=== PATIENT | female | born 1930 | race African-American/Black ===

== ENCOUNTER 2018-03-23 15:05 | Inpatient (IN) | payer MEDICARE, OTHER ==
[~2018-03-23] VITALS: Ht 162.6 cm; Wt 51.7 kg
[2018-03-23] MEDS ORDERED: MORPHINE SULFATE 4 MG/ML CPJ (NOT FOR IM USE) IV STA (16:30)
[2018-03-23] MEDS ORDERED: SODIUM CHLORIDE 0.9% 1,000 ML IV ONE (16:30)
[2018-03-23] MEDS ORDERED: ONDANSETRON HCL 4MG/2ML INJ IV STA (16:30)
[2018-03-23 17:20] LABS: BASOPHILS % 0.4 % (0.0-2.0); EOSINOPHILS % 0.6 % (0.0-5.0); HEMOGLOBIN. 12.8 g/dL (12.0-16.0); LYMPHOCYTES % 10.3 % (20.0-50.0); MEAN CORPUSCULAR HEMOGLOBIN 31.6 pg (28.0-32.0); MEAN CORPUSCULAR VOLUME 93.7 fL (81.0-99.0); MEAN PLATELET VOLUME 8.7 fl (7.4-10.4); MONOCYTES % 3.5 % (2.0-8.0); NEUTROPHILS % 85.2 % (40.0-76.0); PLATELET 200 x1000/uL (130-400); RED BLOOD CELL COUNT 4.05 mill/uL (4.2-5.4); RED CELL DISTRIBUTION WIDTH 14.2 % (11.6-14.6)
[2018-03-23 17:26] LABS: PROTHROMBIN TIME 10.5 sec (9.1-11.1)
[2018-03-23 17:28] LABS: CHLORIDE 105 mEq/L (98-107)
[2018-03-23] MEDS ORDERED: METO25TA6 PO (21:49)
[2018-03-23] MEDS ORDERED: LEVE500T78 PO (21:49)
[2018-03-23] MEDS ORDERED: AMLO10TA80 MT (21:49)
[2018-03-23] MEDS ORDERED: ATOR-2 MT (21:49)
[2018-03-23] MEDS ORDERED: IRBE150T27 MT (21:49)
[2018-03-23] MEDS ORDERED: HYDR12.529 MT (21:49)
[2018-03-23 22:00] VITALS: BP 135/56
[2018-03-23] MEDS ORDERED: MAGNESIUM HYDROXIDE 400MG/5ML 30ML UDC PO PRN (22:30)
[2018-03-23] MEDS ORDERED: ACETAMINOPHEN 650MG/20.3ML UDC PO PRN (22:30)
[2018-03-23 22:34] VITALS: BP 135/56
[2018-03-23] MEDS ORDERED: LEVETIRACETAM 500 MG in SODIUM CHLORIDE 0.9% 100 ML IV NR (23:30)
[2018-03-23] MEDS: DEXT 5%/0.45% NACL 1000ML 1,000 ML IV SCH (23:45)
[2018-03-24] VITALS: BP 135/55
[2018-03-24 04:00] VITALS: BP 166/80
[2018-03-24 06:51] LABS: HEMATOCRIT 37.6 % (36.0-48.0); HEMOGLOBIN 12.9 g/dL (12.0-16.0)
[2018-03-24 08:00] VITALS: BP 143/64
[2018-03-24] MEDS: LOSARTAN POTASSIUM 50 MG TABLET PO SCH (08:48)
[2018-03-24] MEDS: AMLODIPINE 10MG TABLET PO SCH (08:49)
[2018-03-24] MEDS: LEVETIRACETAM 500 MG in SODIUM CHLORIDE 0.9% 100 ML IV SCH ×2 (08:49→20:26)
[2018-03-24] MEDS ORDERED: IRBESARTAN MT SCH (09:00)
[2018-03-24 12:00] VITALS: BP 150/64
[2018-03-24] MEDS: DEXT 5%/0.45% NACL 1000ML 1,000 ML IV SCH (12:19)
[2018-03-24] MEDS ORDERED: MORPHINE SULFATE 4 MG/ML CPJ (NOT FOR IM USE) IV ONE (12:39)
[2018-03-24] MEDS ORDERED: ROPIVACAINE HCL 10MG/ML 20 ML VIAL EPI ONE (12:39)
[2018-03-24] MEDS ORDERED: BACITRACIN 50,000 UNITS/VIAL ONE (12:40)
[2018-03-24] MEDS ORDERED: ROCURONIUM BROMIDE 10MG/ML VIAL 5ML IV ONE (14:57)
[2018-03-24] MEDS ORDERED: FENTANYL CITRATE/PF 50MCG/ML 2ML VIAL ONE (14:57)
[2018-03-24] MEDS ORDERED: NEOSTIGMINE METHYLSULFATE 1MG/ML 10 ML VIAL ONE (14:57)
[2018-03-24] MEDS ORDERED: GLYCOPYRROLATE 0.2 MG/ML 2ML VIAL ONE (14:58)
[2018-03-24] MEDS ORDERED: PROPOFOL 200MG/20ML VIAL IV ONE (14:58)
[2018-03-24] MEDS ORDERED: MIDAZOLAM HCL 2 MG/2 ML VIAL ONE (14:58)
[2018-03-24] MEDS ORDERED: ONDANSETRON HCL 4MG/2ML INJ ONE (15:00)
[2018-03-24] MEDS ORDERED: DEXAMETHASONE 4MG/ML 1ML VIAL ONE (15:00)
[2018-03-24] MEDS ORDERED: MEPERIDINE HCL/PF 25MG/ML CPJ IV PRN (15:45)
[2018-03-24] MEDS ORDERED: LABETALOL 5MG/ML SYR 20 MG/4 ML SYRINGE IV PRN (15:45)
[2018-03-24] MEDS ORDERED: HYDROMORPHONE HCL/PF 2MG/ML CPJ IV PRN (15:45)
[2018-03-24] MEDS ORDERED: ONDANSETRON HCL 4MG/2ML INJ IV PRN (15:45)
[2018-03-24] MEDS ORDERED: SODIUM CHLORIDE 0.9% 10ML VIAL ONE (15:48)
[2018-03-24] MEDS ORDERED: LIDOCAINE HCL/PF 1% 10 MG/ML 5ML VIAL ONE (15:48)
[2018-03-24] MEDS ORDERED: CEFAZOLIN SODIUM 1000MG/VIAL ONE (15:48)
[2018-03-24] MEDS ORDERED: EPHEDRINE SULFATE 50MG/ML VIAL ONE (15:48)
[2018-03-24] MEDS ORDERED: CEFAZOLIN 1000MG PREMIX 50 ML IV NR (16:00)
[2018-03-24 20:00] VITALS: BP 127/55
[2018-03-25] VITALS: BP 128/56
[2018-03-25] MEDS: DEXT 5%/0.45% NACL 1000ML 1,000 ML IV SCH ×2 (03:36→15:00)
[2018-03-25 04:00] VITALS: BP 130/58
[2018-03-25 08:00] VITALS: BP 142/53
[2018-03-25] MEDS: AMLODIPINE 10MG TABLET PO SCH (08:21)
[2018-03-25] MEDS: LOSARTAN POTASSIUM 50 MG TABLET PO SCH (08:22)
[2018-03-25] MEDS: LEVETIRACETAM 500 MG in SODIUM CHLORIDE 0.9% 100 ML IV SCH (08:23)
[2018-03-25] MEDS: MORPHINE SULFATE 4 MG/ML CPJ (NOT FOR IM USE) IV PRN (09:37)
[2018-03-25] MEDS ORDERED: ACETAMINOPHEN 325MG TABLET PO PRN (09:45)
[2018-03-25] MEDS ORDERED: HYDROCODONE/ACETAMINOPHEN 5/325MG TABLET PO PRN (09:45)
[2018-03-25 09:53] LABS: HEMATOCRIT. 33.6 % (36.0-48.0); HEMOGLOBIN. 11.3 g/dL (12.0-16.0); MEAN CORPUSCULAR HEMOGLOBIN 31.7 pg (28.0-32.0); MEAN CORPUSCULAR VOLUME 94.3 fL (81.0-99.0); MEAN PLATELET VOLUME 9.8 fl (7.4-10.4); PLATELET 172 x1000/uL (130-400); RED BLOOD CELL COUNT 3.56 mill/uL (4.2-5.4); RED CELL DISTRIBUTION WIDTH 14.2 % (11.6-14.6)
[2018-03-25] MEDS: DOCUSATE SODIUM 250MG CAPSULE PO SCH (09:55)
[2018-03-25] MEDS ORDERED: LEVETIRACETAM 500MG/5ML CUP PO SCH (10:00)
[2018-03-25 12:00] VITALS: BP 153/64
[2018-03-25] MEDS ORDERED: ASPIRIN 325MG EC TABLET PO SCH (17:00)
[2018-03-25] MEDS: ENOXAPARIN 30MG/0.3ML SYR SUBCUT SCH ×2 (17:15→17:19)
[2018-03-25 17:25] LABS: HEMATOCRIT. 30.4 % (36.0-48.0); HEMOGLOBIN. 10.3 g/dL (12.0-16.0); MEAN CORPUSCULAR VOLUME 94.1 fL (81.0-99.0); MEAN PLATELET VOLUME 9.5 fl (7.4-10.4); PLATELET 148 x1000/uL (130-400); RED BLOOD CELL COUNT 3.23 mill/uL (4.2-5.4); RED CELL DISTRIBUTION WIDTH 13.9 % (11.6-14.6)
[2018-03-25 20:00] VITALS: BP 147/47
[2018-03-25] MEDS: LEVETIRACETAM 500MG/5ML CUP PO SCH (20:15)
[2018-03-25] MEDS: ZOLPIDEM TARTRATE 5MG TABLET PO PRN (21:47)
[2018-03-25 21:49] LABS: PLATELET ESTIMATE NORMAL
[2018-03-25 21:54] LABS: PLATELET ESTIMATE NORMAL
[2018-03-26 00:07] VITALS: BP 127/49
[2018-03-26 04:00] VITALS: BP 153/62
[2018-03-26] MEDS: MORPHINE SULFATE 4 MG/ML CPJ (NOT FOR IM USE) IV PRN ×2 (04:58→12:49)
[2018-03-26] MEDS: DEXT 5%/0.45% NACL 1000ML 1,000 ML IV SCH (05:00)
[2018-03-26 08:00] VITALS: BP 195/79
[2018-03-26] MEDS: LEVETIRACETAM 500MG/5ML CUP PO SCH ×2 (09:13→20:55)
[2018-03-26] MEDS: DOCUSATE SODIUM 250MG CAPSULE PO SCH (09:13)
[2018-03-26] MEDS: AMLODIPINE 10MG TABLET PO SCH (09:14)
[2018-03-26] MEDS: LOSARTAN POTASSIUM 50 MG TABLET PO SCH (09:14)
[2018-03-26] MEDS: ENOXAPARIN 30MG/0.3ML SYR SUBCUT SCH (09:21)
[2018-03-26] MEDS ORDERED: LOSARTAN POTASSIUM 50 MG TABLET PO SCH (09:30)
[2018-03-26] MEDS ORDERED: CLONIDINE 0.1MG TABLET PO PRN (09:30)
[2018-03-26 12:00] VITALS: BP 167/56
[2018-03-26 16:00] VITALS: BP 152/62
[2018-03-26 20:00] VITALS: BP 142/54
[2018-03-26] MEDS: ZOLPIDEM TARTRATE 5MG TABLET PO PRN (20:55)
[2018-03-27] VITALS: BP 149/50
[2018-03-27 04:00] VITALS: BP 140/61
[2018-03-27] MEDS: MORPHINE SULFATE 4 MG/ML CPJ (NOT FOR IM USE) IV PRN (05:51)
[2018-03-27 08:00] VITALS: BP 149/64
[2018-03-27] MEDS ORDERED: LOSARTAN POTASSIUM 100 MG TABLET PO SCH (09:00)
[2018-03-27] MEDS: DOCUSATE SODIUM 250MG CAPSULE PO SCH (09:16)
[2018-03-27] MEDS: ENOXAPARIN 30MG/0.3ML SYR SUBCUT SCH (09:17)
[2018-03-27] MEDS: LEVETIRACETAM 500MG/5ML CUP PO SCH (09:17)
[2018-03-27] MEDS: AMLODIPINE 10MG TABLET PO SCH (09:17)
[2018-03-27 12:00] VITALS: BP 161/60
[2018-03-27 14:29] VITALS: BP 161/60
[2018-03-27 15:50] LABS: BASOPHILS % 0.3 % (0.0-2.0); EOSINOPHILS % 0.3 % (0.0-5.0); HEMATOCRIT. 28.7 % (36.0-48.0); HEMOGLOBIN. 9.9 g/dL (12.0-16.0); MEAN CORPUSCULAR HEMOGLOBIN 31.9 pg (28.0-32.0); MEAN CORPUSCULAR VOLUME 92.3 fL (81.0-99.0); MEAN PLATELET VOLUME 8.9 fl (7.4-10.4); MONOCYTES % 6.9 % (2.0-8.0); NEUTROPHILS % 84.5 % (40.0-76.0); PLATELET 165 x1000/uL (130-400); RED BLOOD CELL COUNT 3.11 mill/uL (4.2-5.4); RED CELL DISTRIBUTION WIDTH 14.1 % (11.6-14.6)
[2018-03-27 16:00] VITALS: BP 153/54
== END 2018-03-27 17:20 | DRG 470 ==
LOC: ER 15:05 → 6EST 16:53 → EDBEDREQTM 16:57 → EDBEDREQSVC 16:57 → EDBEDREQ 16:57 → ENRESERV 20:19
PROVIDERS: ADMIT Specialist; ATTEND Specialist
PROC: 0SRR0JZ Replacement of Right Hip Joint, Femoral Surface with Synthetic Substitute, Open Approach (ICD-10-PCS; principal; 2018-03-24 14:30)
DX: S72.011A Unspecified intracapsular fracture of right femur, initial encounter for closed fracture (principal); E11.9 Type 2 diabetes mellitus without complications; I10 Essential (primary) hypertension; G40.909 Epilepsy, unspecified, not intractable, without status epilepticus; F03.90 Unspecified dementia, unspecified severity, without behavioral disturbance, psychotic disturbance, mood disturbance, and anxiety; D64.9 Anemia, unspecified; W01.0XXA Fall on same level from slipping, tripping and stumbling without subsequent striking against object, initial encounter; Y93.89 Activity, other specified; Y92.89 Other specified places as the place of occurrence of the external cause; Y99.8 Other external cause status; Z86.73 Personal history of transient ischemic attack (TIA), and cerebral infarction without residual deficits; Z79.899 Other long term (current) drug therapy; Z88.8 Allergy status to other drugs, medicaments and biological substances
CPT/HCPCS: 36415; 71045; 72170; 73522; 80053; 85014; 85018; 85025; 85610; 85730; 86850; 86900; 88305; 88311; 93005; 93970; 96361; 96374; 96375; 97116; 97162; 99285; A4216; C1776; J0690; J1100; J1650; J1953; J2250; J2270; J2405; J2704; J2710; J2795; J3010; J3490; J7030; J7050; A4315

== ENCOUNTER 2018-03-27 17:30 | Inpatient (IN) | payer OTHER ==
[~2018-03-27] VITALS: Ht 162.6 cm; Wt 51.7 kg
[~2018-03-27 17:30] MED LIST: AMLO10TA80 MT; ATOR-2 MT; HYDR12.529 MT; IRBE150T27 MT; LEVE500T78 PO; METO25TA6 PO
[2018-03-27 17:40] VITALS: BP 143/55
[2018-03-27] MEDS ORDERED: ACETAMINOPHEN 650MG/20.3ML UDC PO PRN (19:00)
[2018-03-27] MEDS ORDERED: CLONIDINE 0.1MG TABLET PO PRN (19:00)
[2018-03-27] MEDS ORDERED: ZOLPIDEM TARTRATE 5MG TABLET PO PRN (19:00)
[2018-03-27] MEDS ORDERED: MORPHINE SULFATE 4 MG/ML CPJ (NOT FOR IM USE) IV PRN (19:15)
[2018-03-27 20:00] VITALS: BP_SYST 140; BP_SYST 143; BP_DIAS 55; BP_DIAS 65
[2018-03-27] MEDS ORDERED: NA PHOS,M-B/NA PHOS,DI-BA ENEMA 118ML PR PRN (21:00)
[2018-03-27] MEDS: LEVETIRACETAM 500MG TABLET PO SCH (22:26)
[2018-03-27] MEDS: MAGNESIUM HYDROXIDE 400MG/5ML 30ML UDC PO PRN (23:24)
[2018-03-28] MEDS ORDERED: TAMSULOSIN HCL 0.4MG SR CAPSULE PO NR (01:45)
[2018-03-28 06:47] LABS: BASOPHILS % 0.5 % (0.0-2.0); EOSINOPHILS % 0.3 % (0.0-5.0); HEMATOCRIT. 25.5 % (36.0-48.0); LYMPHOCYTES % 9.5 % (20.0-50.0); MEAN CORPUSCULAR HEMOGLOBIN 32.7 pg (28.0-32.0); MEAN CORPUSCULAR VOLUME 92.7 fL (81.0-99.0); MEAN PLATELET VOLUME 9.2 fl (7.4-10.4); MONOCYTES % 8.6 % (2.0-8.0); NEUTROPHILS % 81.1 % (40.0-76.0); PLATELET 154 x1000/uL (130-400); RED BLOOD CELL COUNT 2.75 mill/uL (4.2-5.4); RED CELL DISTRIBUTION WIDTH 13.6 % (11.6-14.6)
[2018-03-28 06:49] LABS: CHLORIDE 108 mEq/L (98-107)
[2018-03-28 07:23] LABS: VITAMIN B12 SERUM 552 pg/mL (211-911)
[2018-03-28 08:00] VITALS: BP 135/61
[2018-03-28] MEDS: DOCUSATE SODIUM 250MG CAPSULE PO SCH (08:14)
[2018-03-28] MEDS: LEVETIRACETAM 500MG TABLET PO SCH ×2 (08:15→20:33)
[2018-03-28] MEDS: ENOXAPARIN 30MG/0.3ML SYR SUBCUT SCH (08:17)
[2018-03-28] MEDS: LOSARTAN POTASSIUM 100 MG TABLET PO SCH (08:17)
[2018-03-28] MEDS: HYDROCODONE/ACETAMINOPHEN 5/325MG TABLET PO PRN ×2 (08:20→14:32)
[2018-03-28] MEDS ORDERED: AMLODIPINE 10MG TABLET PO SCH (09:00)
[2018-03-28] MEDS ORDERED: POTASSIUM CHLORIDE 20MEQ TABLET SR PO NR (10:30)
[2018-03-28] MEDS: FERROUS SULFATE 325MG TABLET PO SCH (18:05)
[2018-03-28] MEDS: ASCORBIC ACID 500 MG TABLET PO SCH (18:05)
[2018-03-28 20:00] VITALS: BP 123/44
[2018-03-28] MEDS: BISACODYL 5MG TABLET PO PRN (20:33)
[2018-03-28] MEDS: TAMSULOSIN HCL 0.4MG SR CAPSULE PO SCH (20:33)
[2018-03-29] MEDS: HYDROCODONE/ACETAMINOPHEN 5/325MG TABLET PO PRN ×2 (06:56→13:14)
[2018-03-29 07:14] LABS: CHLORIDE 107 mEq/L (98-107)
[2018-03-29 08:00] VITALS: BP 137/60
[2018-03-29] MEDS: DOCUSATE SODIUM 250MG CAPSULE PO SCH (08:41)
[2018-03-29] MEDS: FERROUS SULFATE 325MG TABLET PO SCH ×2 (08:41→17:17)
[2018-03-29] MEDS: AMLODIPINE 5MG TABLET PO SCH (08:42)
[2018-03-29] MEDS: LEVETIRACETAM 500MG TABLET PO SCH ×2 (08:42→21:21)
[2018-03-29] MEDS: ASCORBIC ACID 500 MG TABLET PO SCH ×2 (08:42→17:17)
[2018-03-29] MEDS: LOSARTAN POTASSIUM 100 MG TABLET PO SCH (08:42)
[2018-03-29] MEDS: ENOXAPARIN 30MG/0.3ML SYR SUBCUT SCH (08:48)
[2018-03-29] MEDS ORDERED: POTASSIUM CHLORIDE 20MEQ TABLET SR PO NR (11:00)
[2018-03-29 20:16] VITALS: BP 128/54
[2018-03-29] MEDS: TAMSULOSIN HCL 0.4MG SR CAPSULE PO SCH (21:21)
[2018-03-30] MEDS: ACETAMINOPHEN 325MG TABLET PO PRN (02:39)
[2018-03-30 07:55] VITALS: BP 112/45
[2018-03-30] MEDS: POTASSIUM CHLORIDE 20MEQ TABLET SR PO SCH (08:33)
[2018-03-30] MEDS: ACETAMINOPHEN 500MG TABLET PO SCH ×2 (08:33→13:38)
[2018-03-30] MEDS: LEVETIRACETAM 500MG TABLET PO SCH ×2 (08:34→21:25)
[2018-03-30] MEDS: ASCORBIC ACID 500 MG TABLET PO SCH ×2 (08:34→18:20)
[2018-03-30] MEDS: FERROUS SULFATE 325MG TABLET PO SCH ×2 (08:34→18:20)
[2018-03-30] MEDS: LOSARTAN POTASSIUM 100 MG TABLET PO SCH (08:34)
[2018-03-30] MEDS: AMLODIPINE 5MG TABLET PO SCH (08:34)
[2018-03-30] MEDS: ENOXAPARIN 30MG/0.3ML SYR SUBCUT SCH (08:34)
[2018-03-30] MEDS: DOCUSATE SODIUM 250MG CAPSULE PO SCH (08:45)
[2018-03-30] MEDS: HYDROCODONE/ACETAMINOPHEN 5/325MG TABLET PO PRN ×2 (09:46→21:24)
[2018-03-30 20:00] VITALS: BP 119/50
[2018-03-30] MEDS: TAMSULOSIN HCL 0.4MG SR CAPSULE PO SCH (21:25)
[2018-03-31] MEDS: ACETAMINOPHEN 500MG TABLET PO SCH ×2 (07:00→14:14)
[2018-03-31] MEDS ORDERED: MORPHINE SULFATE 4 MG/ML CPJ (NOT FOR IM USE) IV PRN (07:15)
[2018-03-31 08:17] LABS: BASOPHILS % 0.3 % (0.0-2.0); EOSINOPHILS % 0.8 % (0.0-5.0); HEMATOCRIT. 25.2 % (36.0-48.0); HEMOGLOBIN. 8.6 g/dL (12.0-16.0); LYMPHOCYTES % 8.4 % (20.0-50.0); MEAN CORPUSCULAR HEMOGLOBIN 32.2 pg (28.0-32.0); MEAN CORPUSCULAR VOLUME 94.2 fL (81.0-99.0); MEAN PLATELET VOLUME 8.6 fl (7.4-10.4); MONOCYTES % 4.2 % (2.0-8.0); NEUTROPHILS % 86.3 % (40.0-76.0); PLATELET 227 x1000/uL (130-400); RED BLOOD CELL COUNT 2.68 mill/uL (4.2-5.4); RED CELL DISTRIBUTION WIDTH 13.9 % (11.6-14.6)
[2018-03-31 08:22] VITALS: BP 138/53
[2018-03-31] MEDS: LEVETIRACETAM 500MG TABLET PO SCH ×2 (08:53→20:33)
[2018-03-31] MEDS: ENOXAPARIN 30MG/0.3ML SYR SUBCUT SCH (08:53)
[2018-03-31] MEDS: ASCORBIC ACID 500 MG TABLET PO SCH (08:53)
[2018-03-31] MEDS: FERROUS SULFATE 325MG TABLET PO SCH (08:53)
[2018-03-31] MEDS: POTASSIUM CHLORIDE 20MEQ TABLET SR PO SCH (08:53)
[2018-03-31] MEDS: DOCUSATE SODIUM 250MG CAPSULE PO SCH (08:54)
[2018-03-31] MEDS: LOSARTAN POTASSIUM 100 MG TABLET PO SCH (08:54)
[2018-03-31] MEDS: AMLODIPINE 5MG TABLET PO SCH (08:54)
[2018-03-31] MEDS: HYDROCODONE/ACETAMINOPHEN 5/325MG TABLET PO PRN (08:59)
[2018-03-31 09:05] LABS: CHLORIDE 108 mEq/L (98-107)
[2018-03-31 20:00] VITALS: BP_SYST 133; BP_DIAS 47; BP_DIAS 52
[2018-03-31] MEDS: TAMSULOSIN HCL 0.4MG SR CAPSULE PO SCH (23:32)
[2018-04-01] MEDS: ACETAMINOPHEN 325MG TABLET PO PRN ×2 (00:45→17:13)
[2018-04-01] MEDS ORDERED: ZOLPIDEM TARTRATE 5MG TABLET PO PRN (03:15)
[2018-04-01] MEDS ORDERED: HYDROCODONE/ACETAMINOPHEN 5/325MG TABLET PO PRN (03:16)
[2018-04-01] MEDS: ACETAMINOPHEN 500MG TABLET PO SCH ×3 (06:29→13:47)
[2018-04-01 08:00] VITALS: BP 128/57
[2018-04-01] MEDS: LOSARTAN POTASSIUM 100 MG TABLET PO SCH (10:20)
[2018-04-01] MEDS: DOCUSATE SODIUM 250MG CAPSULE PO SCH (10:20)
[2018-04-01] MEDS: ASCORBIC ACID 500 MG TABLET PO SCH ×2 (10:20→17:12)
[2018-04-01] MEDS: AMLODIPINE 5MG TABLET PO SCH (10:20)
[2018-04-01] MEDS: POTASSIUM CHLORIDE 20MEQ TABLET SR PO SCH (10:21)
[2018-04-01] MEDS: LEVETIRACETAM 500MG TABLET PO SCH ×2 (10:21→21:18)
[2018-04-01] MEDS: FERROUS SULFATE 325MG TABLET PO SCH ×2 (10:21→17:12)
[2018-04-01] MEDS: QUETIAPINE FUMARATE 25MG TABLET PO SCH ×2 (10:21→17:12)
[2018-04-01] MEDS: ENOXAPARIN 30MG/0.3ML SYR SUBCUT SCH (10:21)
[2018-04-01 20:00] VITALS: BP 136/59
[2018-04-01] MEDS: TAMSULOSIN HCL 0.4MG SR CAPSULE PO SCH (21:17)
[2018-04-02] MEDS: ACETAMINOPHEN 500MG TABLET PO SCH ×3 (06:04→22:00)
[2018-04-02 08:00] VITALS: BP 138/63
[2018-04-02] MEDS: ENOXAPARIN 30MG/0.3ML SYR SUBCUT SCH (09:00)
[2018-04-02] MEDS: DOCUSATE SODIUM 250MG CAPSULE PO SCH (09:22)
[2018-04-02] MEDS: POTASSIUM CHLORIDE 20MEQ TABLET SR PO SCH (09:22)
[2018-04-02] MEDS: QUETIAPINE FUMARATE 25MG TABLET PO SCH ×2 (09:22→16:44)
[2018-04-02] MEDS: ASCORBIC ACID 500 MG TABLET PO SCH ×2 (09:22→16:47)
[2018-04-02] MEDS: AMLODIPINE 5MG TABLET PO SCH (09:22)
[2018-04-02] MEDS: LEVETIRACETAM 500MG TABLET PO SCH ×2 (09:22→21:59)
[2018-04-02] MEDS: FERROUS SULFATE 325MG TABLET PO SCH ×2 (09:22→16:44)
[2018-04-02] MEDS: LOSARTAN POTASSIUM 100 MG TABLET PO SCH (09:22)
[2018-04-02 20:00] VITALS: BP 147/61
[2018-04-02] MEDS: TAMSULOSIN HCL 0.4MG SR CAPSULE PO SCH (21:59)
[2018-04-03 03:44] LABS: CLARITY URINE TURBID (CLEAR); COLOR URINE YELLOW (YELLOW); KETONES URINE TRACE (NEGATIVE); LEUKOCYTE ESTERASE URINE 3+ (NEGATIVE); NITRITE URINE POSITIVE (NEGATIVE); OCCULT BLOOD URINE 1+ (NEGATIVE); PROTEIN URINE 1+ (NEGATIVE); SPECIFIC GRAVITY URINE 1.016 (1.005-1.030)
[2018-04-03] MEDS: ACETAMINOPHEN 500MG TABLET PO SCH ×2 (06:12→12:22)
[2018-04-03 08:00] VITALS: BP 133/54
[2018-04-03] MEDS: LOSARTAN POTASSIUM 100 MG TABLET PO SCH (08:09)
[2018-04-03] MEDS: FERROUS SULFATE 325MG TABLET PO SCH ×2 (08:10→17:18)
[2018-04-03] MEDS: POTASSIUM CHLORIDE 20MEQ TABLET SR PO SCH ×2 (08:10→08:20)
[2018-04-03] MEDS: DOCUSATE SODIUM 250MG CAPSULE PO SCH (08:10)
[2018-04-03] MEDS: QUETIAPINE FUMARATE 25MG TABLET PO SCH ×3 (08:11→17:18)
[2018-04-03] MEDS: ASCORBIC ACID 500 MG TABLET PO SCH ×2 (08:12→17:18)
[2018-04-03] MEDS: AMLODIPINE 5MG TABLET PO SCH (08:12)
[2018-04-03] MEDS: LEVETIRACETAM 500MG TABLET PO SCH ×2 (08:13→20:42)
[2018-04-03] MEDS: ENOXAPARIN 30MG/0.3ML SYR SUBCUT SCH (08:16)
[2018-04-03 19:10] LABS: BASOPHILS % 0.6 % (0.0-2.0); EOSINOPHILS % 0.3 % (0.0-5.0); HEMATOCRIT. 27.5 % (36.0-48.0); HEMOGLOBIN. 9.2 g/dL (12.0-16.0); LYMPHOCYTES % 9.9 % (20.0-50.0); MEAN CORPUSCULAR HEMOGLOBIN 32.3 pg (28.0-32.0); MEAN CORPUSCULAR VOLUME 96.6 fL (81.0-99.0); MEAN PLATELET VOLUME 7.3 fl (7.4-10.4); MONOCYTES % 4.9 % (2.0-8.0); NEUTROPHILS % 84.3 % (40.0-76.0); PLATELET 410 x1000/uL (130-400); RED BLOOD CELL COUNT 2.84 mill/uL (4.2-5.4); RED CELL DISTRIBUTION WIDTH 14.3 % (11.6-14.6)
[2018-04-03 20:00] VITALS: BP 131/60
[2018-04-03] MEDS: TAMSULOSIN HCL 0.4MG SR CAPSULE PO SCH (20:41)
[2018-04-04] MEDS: ACETAMINOPHEN 500MG TABLET PO SCH ×2 (06:38→13:00)
[2018-04-04 07:32] LABS: BASOPHILS % 0.5 % (0.0-2.0); EOSINOPHILS % 0.8 % (0.0-5.0); HEMATOCRIT. 25.2 % (36.0-48.0); HEMOGLOBIN. 8.6 g/dL (12.0-16.0); LYMPHOCYTES % 9.9 % (20.0-50.0); MEAN CORPUSCULAR VOLUME 96.4 fL (81.0-99.0); MEAN PLATELET VOLUME 8.2 fl (7.4-10.4); MONOCYTES % 5.2 % (2.0-8.0); NEUTROPHILS % 83.6 % (40.0-76.0); PLATELET 404 x1000/uL (130-400); RED BLOOD CELL COUNT 2.61 mill/uL (4.2-5.4); RED CELL DISTRIBUTION WIDTH 14.4 % (11.6-14.6)
[2018-04-04 08:00] VITALS: BP 132/53
[2018-04-04 08:34] LABS: CHLORIDE 106 mEq/L (98-107)
[2018-04-04] MEDS: ACETAMINOPHEN 325MG TABLET PO PRN (10:46)
[2018-04-04] MEDS: ASCORBIC ACID 500 MG TABLET PO SCH ×2 (10:46→17:21)
[2018-04-04] MEDS: FERROUS SULFATE 325MG TABLET PO SCH ×2 (10:49→17:22)
[2018-04-04] MEDS: AMLODIPINE 5MG TABLET PO SCH (10:49)
[2018-04-04] MEDS: DOCUSATE SODIUM 250MG CAPSULE PO SCH (10:50)
[2018-04-04] MEDS: LOSARTAN POTASSIUM 100 MG TABLET PO SCH (10:50)
[2018-04-04] MEDS: POTASSIUM CHLORIDE 20MEQ TABLET SR PO SCH (10:50)
[2018-04-04] MEDS: QUETIAPINE FUMARATE 25MG TABLET PO SCH ×2 (10:50→17:21)
[2018-04-04] MEDS: LEVETIRACETAM 500MG TABLET PO SCH ×2 (10:51→22:31)
[2018-04-04] MEDS: ENOXAPARIN 30MG/0.3ML SYR SUBCUT SCH (10:52)
[2018-04-04 20:00] VITALS: BP 129/54
[2018-04-04] MEDS: TAMSULOSIN HCL 0.4MG SR CAPSULE PO SCH (22:31)
[2018-04-05] MEDS: ACETAMINOPHEN 500MG TABLET PO SCH ×2 (05:13→13:15)
[2018-04-05 08:00] VITALS: BP 123/66
[2018-04-05] MEDS: LEVETIRACETAM 500MG TABLET PO SCH ×2 (10:35→21:38)
[2018-04-05] MEDS: POTASSIUM CHLORIDE 20MEQ TABLET SR PO SCH (10:36)
[2018-04-05] MEDS: QUETIAPINE FUMARATE 25MG TABLET PO SCH ×2 (10:37→16:04)
[2018-04-05] MEDS: LOSARTAN POTASSIUM 100 MG TABLET PO SCH (10:44)
[2018-04-05] MEDS: AMLODIPINE 5MG TABLET PO SCH (10:44)
[2018-04-05] MEDS: FERROUS SULFATE 325MG TABLET PO SCH ×2 (10:44→16:04)
[2018-04-05] MEDS: ASCORBIC ACID 500 MG TABLET PO SCH ×2 (10:45→16:04)
[2018-04-05] MEDS: DOCUSATE SODIUM 250MG CAPSULE PO SCH (10:45)
[2018-04-05] MEDS: ENOXAPARIN 30MG/0.3ML SYR SUBCUT SCH (10:45)
[2018-04-05 20:00] VITALS: BP 128/48
[2018-04-05] MEDS: TAMSULOSIN HCL 0.4MG SR CAPSULE PO SCH (21:45)
[2018-04-06] MEDS: ACETAMINOPHEN 500MG TABLET PO SCH ×2 (07:03→13:30)
[2018-04-06 08:17] VITALS: BP 107/40
[2018-04-06] MEDS: AMLODIPINE 5MG TABLET PO SCH (09:00)
[2018-04-06] MEDS: LOSARTAN POTASSIUM 100 MG TABLET PO SCH (09:00)
[2018-04-06] MEDS: DOCUSATE SODIUM 250MG CAPSULE PO SCH (09:00)
[2018-04-06] MEDS: ENOXAPARIN 30MG/0.3ML SYR SUBCUT SCH (09:00)
[2018-04-06] MEDS: QUETIAPINE FUMARATE 25MG TABLET PO SCH ×2 (09:56→18:04)
[2018-04-06] MEDS: ASCORBIC ACID 500 MG TABLET PO SCH ×2 (09:57→18:04)
[2018-04-06] MEDS: FERROUS SULFATE 325MG TABLET PO SCH ×2 (09:57→18:04)
[2018-04-06] MEDS: LEVETIRACETAM 500MG TABLET PO SCH ×2 (09:57→21:34)
[2018-04-06] MEDS: POTASSIUM CHLORIDE 20MEQ TABLET SR PO SCH (09:58)
[2018-04-06] MEDS: LEVOFLOXACIN 250MG TABLET PO SCH (13:30)
[2018-04-06 20:00] VITALS: BP 146/58
[2018-04-06] MEDS: TAMSULOSIN HCL 0.4MG SR CAPSULE PO SCH (21:34)
[2018-04-06] MEDS: BISACODYL 5MG TABLET PO PRN (23:18)
[2018-04-07] MEDS: MAGNESIUM HYDROXIDE 400MG/5ML 30ML UDC PO PRN (05:59)
[2018-04-07] MEDS: ACETAMINOPHEN 500MG TABLET PO SCH ×2 (06:01→12:53)
[2018-04-07 06:42] LABS: BASOPHILS % 0.5 % (0.0-2.0); EOSINOPHILS % 1.3 % (0.0-5.0); HEMATOCRIT. 25.8 % (36.0-48.0); LYMPHOCYTES % 11.2 % (20.0-50.0); MEAN CORPUSCULAR HEMOGLOBIN 33.6 pg (28.0-32.0); MEAN CORPUSCULAR VOLUME 96.6 fL (81.0-99.0); MEAN PLATELET VOLUME 7.4 fl (7.4-10.4); MONOCYTES % 6.1 % (2.0-8.0); NEUTROPHILS % 80.9 % (40.0-76.0); PLATELET 438 x1000/uL (130-400); RED BLOOD CELL COUNT 2.67 mill/uL (4.2-5.4); RED CELL DISTRIBUTION WIDTH 16.5 % (11.6-14.6)
[2018-04-07 07:05] LABS: CHLORIDE 110 mEq/L (98-107)
[2018-04-07 08:00] VITALS: BP 116/48
[2018-04-07] MEDS: LEVETIRACETAM 500MG TABLET PO SCH ×2 (09:57→21:26)
[2018-04-07] MEDS: QUETIAPINE FUMARATE 25MG TABLET PO SCH ×2 (09:57→18:44)
[2018-04-07] MEDS: ENOXAPARIN 30MG/0.3ML SYR SUBCUT SCH (09:57)
[2018-04-07] MEDS: AMLODIPINE 5MG TABLET PO SCH (09:57)
[2018-04-07] MEDS: POTASSIUM CHLORIDE 20MEQ TABLET SR PO SCH (09:58)
[2018-04-07] MEDS: LOSARTAN POTASSIUM 100 MG TABLET PO SCH (09:58)
[2018-04-07] MEDS: DOCUSATE SODIUM 250MG CAPSULE PO SCH (09:58)
[2018-04-07] MEDS: FERROUS SULFATE 325MG TABLET PO SCH ×2 (09:58→18:44)
[2018-04-07] MEDS: ASCORBIC ACID 500 MG TABLET PO SCH ×2 (09:58→18:44)
[2018-04-07] MEDS: LEVOFLOXACIN 250MG TABLET PO SCH (12:53)
[2018-04-07 20:00] VITALS: BP 106/42
[2018-04-07] MEDS: TAMSULOSIN HCL 0.4MG SR CAPSULE PO SCH (21:26)
[2018-04-08] MEDS: ACETAMINOPHEN 500MG TABLET PO SCH ×2 (07:00→13:43)
[2018-04-08 08:27] VITALS: BP 123/45
[2018-04-08] MEDS: POTASSIUM CHLORIDE 20MEQ TABLET SR PO SCH (09:00)
[2018-04-08] MEDS: LOSARTAN POTASSIUM 100 MG TABLET PO SCH (09:00)
[2018-04-08] MEDS: QUETIAPINE FUMARATE 25MG TABLET PO SCH (09:00)
[2018-04-08] MEDS: AMLODIPINE 5MG TABLET PO SCH (09:00)
[2018-04-08] MEDS: ENOXAPARIN 30MG/0.3ML SYR SUBCUT SCH (09:00)
[2018-04-08] MEDS: ASCORBIC ACID 500 MG TABLET PO SCH (09:00)
[2018-04-08] MEDS: FERROUS SULFATE 325MG TABLET PO SCH (09:00)
[2018-04-08] MEDS: LEVETIRACETAM 500MG TABLET PO SCH (09:00)
[2018-04-08] MEDS: DOCUSATE SODIUM 250MG CAPSULE PO SCH (09:00)
[2018-04-08] MEDS: LEVOFLOXACIN 250MG TABLET PO SCH (11:00)
[2018-04-08 14:02] VITALS: BP 123/45
== END 2018-04-08 15:43 | disposition home health service (06) | DRG 536 ==
PROVIDERS: ADMIT Psychiatry & Neurology Neurology; ATTEND Specialist
DX: S72.011A Unspecified intracapsular fracture of right femur, initial encounter for closed fracture (principal); N39.0 Urinary tract infection, site not specified; F05 Delirium due to known physiological condition; W01.0XXA Fall on same level from slipping, tripping and stumbling without subsequent striking against object, initial encounter; Y93.89 Activity, other specified; Y92.89 Other specified places as the place of occurrence of the external cause; Y99.8 Other external cause status; G40.909 Epilepsy, unspecified, not intractable, without status epilepticus; E11.9 Type 2 diabetes mellitus without complications; I10 Essential (primary) hypertension; Z86.73 Personal history of transient ischemic attack (TIA), and cerebral infarction without residual deficits; D64.9 Anemia, unspecified; K59.00 Constipation, unspecified; F41.9 Anxiety disorder, unspecified; F02.80 Dementia in other diseases classified elsewhere, unspecified severity, without behavioral disturbance, psychotic disturbance, mood disturbance, and anxiety; G30.9 Alzheimer's disease, unspecified; Z88.8 Allergy status to other drugs, medicaments and biological substances; J32.0 Chronic maxillary sinusitis; B96.20 Unspecified Escherichia coli [E. coli] as the cause of diseases classified elsewhere; F39 Unspecified mood [affective] disorder
CPT/HCPCS: 36415; 70450; 80048; 81003; 82542; 82607; 82962; 85025; 87077; 87086; 87186; 92523; 97110; 97116; 97127; 97162; 97166; 97530; 97535; G0515; J1650; A4315

== ENCOUNTER 2018-05-31 16:37 | Inpatient (IN) | payer OTHER ==
[~2018-05-31] VITALS: Ht 167.6 cm; Wt 39.7 kg
[2018-05-31] MEDS ORDERED: ACETAMINOPHEN 325MG TABLET PO STA (17:10)
[2018-05-31 18:57] LABS: HEMATOCRIT. 39.9 % (36.0-48.0); HEMOGLOBIN. 13.3 g/dL (12.0-16.0); MEAN CORPUSCULAR HEMOGLOBIN 31.9 pg (28.0-32.0); MEAN CORPUSCULAR VOLUME 95.7 fL (81.0-99.0); MEAN PLATELET VOLUME 8.4 fl (7.4-10.4); PLATELET 256 x1000/uL (130-400); RED BLOOD CELL COUNT 4.17 mill/uL (4.2-5.4); RED CELL DISTRIBUTION WIDTH 14.2 % (11.6-14.6)
[2018-05-31 19:03] LABS: CHLORIDE 108 mEq/L (98-107)
[2018-05-31 19:04] LABS: INR 1.1; PROTHROMBIN TIME 10.8 sec (9.1-11.1)
[2018-05-31 19:21] LABS: PLATELET ESTIMATE NORMAL
[2018-05-31] MEDS ORDERED: LORAZEPAM 0.5MG TABLET PO ONE (19:30)
[2018-05-31 21:04] LABS: CLARITY URINE CLEAR (CLEAR); COLOR URINE YELLOW (YELLOW); KETONES URINE NEGATIVE (NEGATIVE); LEUKOCYTE ESTERASE URINE NEGATIVE (NEGATIVE); NITRITE URINE NEGATIVE (NEGATIVE); OCCULT BLOOD URINE NEGATIVE (NEGATIVE); PH URINE 6.5 (4.5-8.0); PROTEIN URINE 2+ (NEGATIVE); SPECIFIC GRAVITY URINE 1.011 (1.005-1.030); UROBILINOGEN URINE 0.2 E.U./dL (0.2-1.0)
[2018-05-31 22:10] VITALS: BP 155/66
[2018-05-31 23:10] VITALS: BP 155/66
[2018-05-31] MEDS ORDERED: AMLO5TAB88 PO (23:45)
[2018-05-31] MEDS ORDERED: MAGNESIUM HYDROXIDE 400MG/5ML 30ML UDC PO PRN (23:45)
[2018-05-31] MEDS ORDERED: ZOLPIDEM TARTRATE 5MG TABLET PO PRN (23:45)
[2018-05-31] MEDS ORDERED: ACETAMINOPHEN 325MG TABLET PO PRN (23:45)
[2018-05-31] MEDS ORDERED: LEVE10006 PO (23:46)
[2018-05-31] MEDS ORDERED: QUET25TA34 PO (23:48)
[2018-05-31] MEDS ORDERED: TAMS0.4C31 PO (23:49)
[2018-05-31] MEDS ORDERED: FERR325T6 MT (23:50)
[2018-06-01] VITALS (7 sets, daily range): BP systolic 97–171; BP diastolic 60–74
[2018-06-01] MEDS ORDERED: LEVE750T52 PO (00:37)
[2018-06-01] MEDS ORDERED: LEVE1000 PO (07:10)
[2018-06-01] MEDS ORDERED: KEPP500 PO (07:10)
[2018-06-01] MEDS: QUETIAPINE FUMARATE 25MG TABLET PO SCH ×2 (08:50→18:45)
[2018-06-01] MEDS: LEVETIRACETAM 500MG TABLET PO SCH ×4 (08:50→21:46)
[2018-06-01] MEDS: TAMSULOSIN HCL 0.4MG SR CAPSULE PO SCH (08:50)
[2018-06-01] MEDS: HYDROCODONE/ACETAMINOPHEN 5/325MG TABLET PO PRN (08:51)
[2018-06-01] MEDS: AMLODIPINE 5MG TABLET PO SCH (09:00)
[2018-06-01] MEDS ORDERED: MEDICATION NOT ON FORMULARY EA (Amlodipine Besylate 1 TAB) PO SCH (09:00)
[2018-06-01] MEDS ORDERED: MEDICATION NOT ON FORMULARY EA (Levetiracetam (Keppra) 1,000 MG) PO SCH (09:00)
[2018-06-01] MEDS ORDERED: POTASSIUM CHLORIDE 20MEQ TABLET SR PO SCH (10:00)
[2018-06-01] MEDS: ENOXAPARIN 30MG/0.3ML SYR SUBCUT SCH (10:49)
[2018-06-01] MEDS: CLONIDINE 0.1MG TABLET PO PRN (21:46)
[2018-06-02 04:00] VITALS: BP 158/64
[2018-06-02 08:00] VITALS: BP 126/70
[2018-06-02] MEDS: TAMSULOSIN HCL 0.4MG SR CAPSULE PO SCH ×2 (09:00→11:14)
[2018-06-02] MEDS: ENOXAPARIN 30MG/0.3ML SYR SUBCUT SCH (09:44)
[2018-06-02] MEDS: QUETIAPINE FUMARATE 25MG TABLET PO SCH ×2 (09:44→21:43)
[2018-06-02] MEDS: POTASSIUM CHLORIDE 20MEQ TABLET SR PO SCH (09:44)
[2018-06-02] MEDS: AMLODIPINE 5MG TABLET PO SCH (09:46)
[2018-06-02] MEDS: LEVETIRACETAM 500MG TABLET PO SCH ×4 (10:10→21:44)
[2018-06-02] MEDS: ASPIRIN 325MG EC TABLET PO NR ×2 (11:03→13:03)
[2018-06-02 11:53] VITALS: BP 170/65
[2018-06-02 16:00] VITALS: BP 155/71
[2018-06-02 17:53] VITALS: BP 155/71
[2018-06-02 20:37] VITALS: BP 157/64
[2018-06-02] MEDS: HYDROCODONE/ACETAMINOPHEN 5/325MG TABLET PO PRN (21:48)
[2018-06-03] VITALS: BP 145/83
[2018-06-03 04:00] VITALS: BP 143/61
[2018-06-03] MEDS: HYDROCODONE/ACETAMINOPHEN 5/325MG TABLET PO PRN ×3 (07:03→21:30)
[2018-06-03 07:09] LABS: BASOPHILS % 0.5 % (0.0-2.0); EOSINOPHILS % 0.4 % (0.0-5.0); HEMATOCRIT. 39.3 % (36.0-48.0); HEMOGLOBIN. 13.3 g/dL (12.0-16.0); LYMPHOCYTES % 11.1 % (20.0-50.0); MEAN CORPUSCULAR HEMOGLOBIN 32.7 pg (28.0-32.0); MEAN CORPUSCULAR VOLUME 96.9 fL (81.0-99.0); MONOCYTES % 7.7 % (2.0-8.0); NEUTROPHILS % 80.3 % (40.0-76.0); PLATELET 219 x1000/uL (130-400); RED BLOOD CELL COUNT 4.06 mill/uL (4.2-5.4); RED CELL DISTRIBUTION WIDTH 14.7 % (11.6-14.6)
[2018-06-03 07:28] LABS: CHLORIDE 105 mEq/L (98-107)
[2018-06-03 07:44] LABS: CREATINE KINASE MB FRACTION 1.8 ng/mL (0.5-3.6)
[2018-06-03 07:45] LABS: CREATINE KINASE 63 IU/L (26-192)
[2018-06-03 07:48] LABS: HDL CHOLESTEROL 84 mg/dL (40-59)
[2018-06-03 07:49] LABS: LDL CHOLESTEROL 96 mg/dL (5-100)
[2018-06-03 08:00] VITALS: BP 145/66
[2018-06-03] MEDS: ENOXAPARIN 30MG/0.3ML SYR SUBCUT SCH (09:51)
[2018-06-03] MEDS: TAMSULOSIN HCL 0.4MG SR CAPSULE PO SCH (09:52)
[2018-06-03] MEDS: POTASSIUM CHLORIDE 20MEQ TABLET SR PO SCH (09:52)
[2018-06-03] MEDS: ASPIRIN 81MG EC TABLET PO SCH (09:52)
[2018-06-03] MEDS: AMLODIPINE 5MG TABLET PO SCH (09:52)
[2018-06-03] MEDS: QUETIAPINE FUMARATE 25MG TABLET PO SCH ×2 (09:52→17:43)
[2018-06-03] MEDS: LEVETIRACETAM 500MG TABLET PO SCH ×4 (09:53→21:25)
[2018-06-03 12:00] VITALS: BP 140/63
[2018-06-03 16:00] VITALS: BP 135/63
[2018-06-03 20:00] VITALS: BP 151/62
[2018-06-04] VITALS: BP 160/75
[2018-06-04 04:00] VITALS: BP 198/86
[2018-06-04] MEDS: CLONIDINE 0.1MG TABLET PO PRN (04:10)
[2018-06-04] MEDS: HYDROCODONE/ACETAMINOPHEN 5/325MG TABLET PO PRN ×3 (05:00→21:40)
[2018-06-04 08:22] VITALS: BP 148/61
[2018-06-04] MEDS: ENOXAPARIN 30MG/0.3ML SYR SUBCUT SCH (09:48)
[2018-06-04] MEDS: LEVETIRACETAM 500MG TABLET PO SCH ×4 (09:49→21:41)
[2018-06-04] MEDS: POTASSIUM CHLORIDE 20MEQ TABLET SR PO SCH (09:49)
[2018-06-04] MEDS: TAMSULOSIN HCL 0.4MG SR CAPSULE PO SCH (09:50)
[2018-06-04] MEDS: AMLODIPINE 5MG TABLET PO SCH (09:50)
[2018-06-04] MEDS: ASPIRIN 81MG EC TABLET PO SCH (09:50)
[2018-06-04] MEDS: QUETIAPINE FUMARATE 25MG TABLET PO SCH ×2 (09:50→16:24)
[2018-06-04 12:00] VITALS: BP 158/73
[2018-06-04 16:00] VITALS: BP 152/65
[2018-06-04 20:00] VITALS: BP 140/96
[2018-06-05] VITALS: BP 152/65
[2018-06-05 04:00] VITALS: BP 186/91
[2018-06-05] MEDS: HYDROCODONE/ACETAMINOPHEN 5/325MG TABLET PO PRN ×2 (04:44→09:09)
[2018-06-05] MEDS: CLONIDINE 0.1MG TABLET PO PRN ×2 (04:44→14:32)
[2018-06-05 08:00] VITALS: BP 189/80
[2018-06-05] MEDS: TAMSULOSIN HCL 0.4MG SR CAPSULE PO SCH (09:08)
[2018-06-05] MEDS: AMLODIPINE 5MG TABLET PO SCH (09:08)
[2018-06-05] MEDS: POTASSIUM CHLORIDE 20MEQ TABLET SR PO SCH (09:08)
[2018-06-05] MEDS: LEVETIRACETAM 500MG TABLET PO SCH ×2 (09:09)
[2018-06-05] MEDS: ASPIRIN 81MG EC TABLET PO SCH (09:09)
[2018-06-05] MEDS: QUETIAPINE FUMARATE 25MG TABLET PO SCH (09:09)
[2018-06-05] MEDS: ENOXAPARIN 30MG/0.3ML SYR SUBCUT SCH (09:10)
[2018-06-05 12:00] VITALS: BP 122/68
[2018-06-05 14:13] VITALS: BP 122/68
== END 2018-06-05 14:28 | DRG 281 ==
LOC: ER 16:37 → EDBEDREQ 17:13 → 5WST 19:06 → EDBEDREQ 19:32 → EDBEDREQTM 19:32 → ENRESERV 20:17
PROVIDERS: ADMIT Specialist; ATTEND Specialist
DX: I21.4 Non-ST elevation (NSTEMI) myocardial infarction (principal); E44.0 Moderate protein-calorie malnutrition; Z68.1 Body mass index [BMI] 19.9 or less, adult; S70.01XA Contusion of right hip, initial encounter; W01.0XXA Fall on same level from slipping, tripping and stumbling without subsequent striking against object, initial encounter; E87.6 Hypokalemia; I10 Essential (primary) hypertension; G40.909 Epilepsy, unspecified, not intractable, without status epilepticus; I25.10 Atherosclerotic heart disease of native coronary artery without angina pectoris; Z96.641 Presence of right artificial hip joint; G30.9 Alzheimer's disease, unspecified; F02.80 Dementia in other diseases classified elsewhere, unspecified severity, without behavioral disturbance, psychotic disturbance, mood disturbance, and anxiety; M25.551 Pain in right hip; Z86.73 Personal history of transient ischemic attack (TIA), and cerebral infarction without residual deficits; I25.2 Old myocardial infarction; Y93.89 Activity, other specified; Z88.8 Allergy status to other drugs, medicaments and biological substances; Y92.128 Other place in nursing home as the place of occurrence of the external cause; Y99.8 Other external cause status
CPT/HCPCS: 36415; 71045; 73502; 73700; 80051; 80061; 82550; 82553; 83735; 83880; 84484; 85379; 93005; 93306; 93970; 97162; 97530; 99285; J1650